=== PATIENT | male | born 1960 | race Caucasian/White ===

== ENCOUNTER 2023-12-09 09:13 | Day surgery (SDC) | payer OTHER ==
[~2023-12-09] VITALS: Ht 170.2 cm; Wt 108.0 kg
[2023-12-09] MEDS ORDERED: MEPERIDINE 100 MG INJ. 100 MG/ML VIAL ONE (10:10)
[2023-12-09] MEDS ORDERED: MIDAZOLAM HCL 5 MG/5 ML VIAL ONE (10:10)
[2023-12-09] MEDS ORDERED: fentaNYL CITRATE/PF 100 MCG/2 ML AMP ONE (10:16)
[2023-12-09 15:36] VITALS: BP_SYST 133; PULSE 73; RESP 18; TEMP 97.6; O2SAT 97
== END 2023-12-09 11:20 | disposition home or self-care (01) ==
LOC: SDS 09:13 → SMU 09:13 → SDS 11:20
PROVIDERS: ATTEND Internal Medicine Gastroenterology
DX: Z12.11 Encounter for screening for malignant neoplasm of colon (principal); K63.89 Other specified diseases of intestine; K63.5 Polyp of colon; K64.8 Other hemorrhoids; I10 Essential (primary) hypertension; E11.9 Type 2 diabetes mellitus without complications; Z90.49 Acquired absence of other specified parts of digestive tract; Z79.84 Long term (current) use of oral hypoglycemic drugs; Z79.899 Other long term (current) drug therapy; Z87.891 Personal history of nicotine dependence
CPT/HCPCS: 45385; 82948; 88305; 99152; 99153; G0378; J2250; J3010; J2175